=== PATIENT | male | born 1960 | race Caucasian/White ===

== ENCOUNTER 2016-10-30 23:00 | Emergency (ER) | payer SELFPAY ==
[~2016-10-30] VITALS: Ht 165.1 cm; Wt 80.5 kg
[~2016-10-30 23:00] MED LIST: AUG875 PO; ONDA4TAB35 PO
[2016-10-30 23:05] VITALS: Ht 165.1 cm; Wt 80.5 kg
[2016-10-31] MEDS ORDERED: HYDROCODONE/APAP (10/325) TAB PO ONE (02:00)
--- NOTE | 2016-10-31 02:13 | ERD ---
ER Documentation Chief Complaint Date/Time DATE: 10/31/16 TIME: 02:11 Chief Complaint painful urination x 2 days HPI 56-year-old male with history of type 2 diabetes comes the emergency department with left-sided scrotal pain and painful urination for the past 2 days. He states that he has swelling, and tenderness throughout the testicle, worsened over the last day and then he also noted that he had foul-smelling urine and painful urination. Patient states that he has been sexually active with his only, the exit intercourse this morning. He denies any penile discharge. He denies any rashes. He denies fever, chills, nausea or vomiting. Patient denies abdominal pain. ROS All systems reviewed and are negative except as per history of present illness. Medications Home Meds Active Scripts Doxycycline Hyclate* (Doxycycline Hyclate*) 100 Mg Tablet.dr, 100 MG PO BID for 10 Days, TAB Prov:JUNG GAMEZ PA-C 10/31/16 Ondansetron Hcl* (Zofran* ODT) 4 mg -ODT Tab.disper, 4 MG PO Q6 Y for NAUSEA AND /OR VOMITING, #10 TAB Prov:CRUZKENYA I. FLOW TRADER 07/21/15 Amoxicillin-Clavulanate K* (Augmentin*) 875 Mg Tab, 875 MG PO BID for 7 Days, TAB Prov:CRUZKENYA I. FLOW TRADER 07/21/15 Reported Medications [None] No Conflict Check 08/12/10 Allergies Allergies: Coded Allergies: No Known Drug Allergies (Verified Allergy, Mild, 08/12/10) PMhx/Soc History of Surgery: No Anesthesia Reaction: No Hx Neurological Disorder: No Hx Respiratory Disorders: No Hx Cardiac Disorders: No Hx Psychiatric Problems: No Hx Miscellaneous Medical Probl: Yes (dm) Hx Alcohol Use: No Hx Substance Use: No Hx Tobacco Use: No Smoking Status: Current some day smoker Physical Exam Vitals Vital Signs Date Time Temp Pulse Resp B/P Pulse Ox O2 Delivery O2 Flow Rate FiO2 10/30/16 23:05 99.2 102 20 160/90 99 Physical Exam General: Well-developed, well-nourished. The patient appears in no acute distress. HEENT: Head is normocephalic, atraumatic. No scleral icterus. Neck: Supple. Nontender. Lungs: Clear to auscultation. Normal air movement. Heart: Regular rate and rhythm. S1 and S2 are normal. No murmurs, gallops, or rubs. Abdomen: Soft, nontender, nondistended. Bowel sounds are normoactive. Exam: Scrotum: Left scrotum is swollen, tender throughout., Right side is normal. Hernia: None Testes/Epid: Non-tender w/ normal lie Cremaster: Reflex intact Lymph: No inguinal lymphadenopathy Discharge: None Extremities: No clubbing or cyanosis. Normal pulses. Moving extremities x 4. No weakness. Neurologic: Alert and oriented 3. No focal deficits. Skin: Normal turgor. No rash or lesions. Results 24 hrs Laboratory Tests Test 10/30/16 23:09 10/31/16 02:05 Bedside Glucose 242mg/dL Urine Color LT. YELLOW Urine Clarity CLEAR Urine pH 7.0 Urine Specific [place] <=1.005 Urine Ketones NEGATIVE Urine Nitrite NEGATIVE Urine Bilirubin NEGATIVE Urine Urobilinogen 0.2 E.U./dL Urine Leukocyte Esterase 1+ Urine Microscopic RBC 2-5/HPF Urine Microscopic WBC 2-5/HPF Urine Squamous Epithelial Cells RARE Urine Bacteria FEW Urine Hemoglobin 1+ Urine Glucose NEGATIVE% Urine Total Protein NEGATIVE Current Medications Medications (Trade) Dose Ordered Sig/Minerva Route PRN Reason Start Time Stop Time Status Last Admin Dose Admin Acetaminophen/ Hydrocodone Bitart ([place] (10/325)) 1 tab ONCE ONCE PO 10/31/16 02:00 10/31/16 02:01 DC 10/31/16 02:01 Ceftriaxone Sodium (Rocephin) 250 mg ONCE ONCE IM 10/31/16 04:30 10/31/16 04:31 Lidocaine (Xylocaine 1% (Mdv) 20 ml) 2 ml ONCE ONCE IM 10/31/16 04:30 10/31/16 04:31 PROCEDURE: Testicle ultrasound with power Doppler. CLINICAL INDICATION: Scrotal pain. TECHNIQUE: Multiple sonographic images of the scrotal region were obtained utilizing a linear array transducer with grayscale and color-flow and a Doppler imaging. The images were reviewed on a high-resolution PACS workstation. COMPARISON: None. FINDINGS: Bilateral testicles are normal in size, contour, echogenicity and echotexture. The right testicle measures 4.6 x 2.7 x 3.3 cm and the left testicle measures 3.9 x 2.2 x 3.1 cm. Testicle arterial and venous flow are normal. There is no evidence of testicular mass or torsion. There is no evidence of orchitis. The left epididymis is enlarged and heterogeneous with increased vascularity. The right epididymis measures 10.1 x 11.8 x 17.0 mm the left epididymis measures 22.1 x 10.7 x 10.0 mm. There is a cystic structure within the left epididymal tail measuring 12.4 x 11.3 mm. There is a small left-sided hydrocele. There is no varicocele. Scrotal soft tissues are unremarkable. IMPRESSION: Enlarged and heterogeneous left epididymis with increased vascularity compatible with epididymitis. Small left-sided hydrocele. Left epididymal cyst. .Gavin Hernandez MD, Date Time Electronically viewed and signed by .Gavin Hernandez MD, MD on 10/31/2016 04:04 .T/ Procedures/MDM ED course: Patient was medicated with [place] 10/325 mg. Patient was given Rocephin 250 mg IM. MDM: 56-year-old male comes in with left-sided scrotal pain, and foul-smelling urine, will be treated for epididymitis. Ultrasound shows a left epididymal cyst and epididymitis. He has a history of a painful urination as well as foul- smelling urine, therefore was given Rocephin 250 mg IM and will be sent home with doxycycline. He does not have evidence of a testicular torsion, Lina' s gangrene, incarcerated hernia. Departure Diagnosis: Primary Impression: Epididymitis Condition: JUNG Zuleta PA-C October 31, 2016 02:13
[2016-10-31 02:39] LABS: ADD UMIC YES; URINE BILIRUBIN (Dip) NEGATIVE (NEGATIVE); URINE BLOOD (Dip) 1+ (NEGATIVE); URINE COLOR LT. YELLOW (YELLOW); URINE GLUCOSE (Dip) NEGATIVE (NEGATIVE); URINE KETONES (Dip) NEGATIVE (NEGATIVE); URINE LEUKOCYTE ESTERASE (Dip) 1+ (NEGATIVE); URINE NITRITE (Dip) NEGATIVE (NEGATIVE); URINE TOTAL PROTEIN (Dip) NEGATIVE (NEGATIVE); URINE UROBILINOGEN (Dip) 0.2 E.U./dL (0.1-1.0)
[2016-10-31 02:51] LABS: BACTERIA,URINE FEW; SQUAMOUS EPITHELIAL CELL,UR RARE
--- NOTE | 2016-10-31 04:04 | RADRPT ---
PROCEDURE: Testicle ultrasound with power Doppler. CLINICAL INDICATION: Scrotal pain. TECHNIQUE: Multiple sonographic images of the scrotal region were obtained utilizing a linear arra y transducer with grayscale and color-flow and a Doppler imaging. The images were reviewed on a high -resolution PACS workstation. COMPARISON: None. FINDINGS: Bilateral testicles are normal in size, contour, echogenicity and echotexture. The right testicle m easures 4.6 x 2.7 x 3.3 cm and the left testicle measures 3.9 x 2.2 x 3.1 cm. Testicle arterial and venous flow are normal. There is no evidence of testicular mass or torsion. There is no evidence of orchitis. The left epididymis is enlarged and heterogeneous with increased vascularity. The right epididymis measures 10.1 x 11.8 x 17.0 mm the left epididymis measures 22.1 x 10.7 x 10.0 mm. There is a cystic structure within the left epididymal tail measuring 12.4 x 11.3 mm. There is a small left-sided hy drocele. There is no varicocele. Scrotal soft tissues are unremarkable. IMPRESSION: Enlarged and heterogeneous left epididymis with increased vascularity compatible with epididymitis. Small left-sided hydrocele. Left epididymal cyst. .Gavin Heranndez MD, Date Time Electronically viewed and signed by .Gavin Hernandez MD, MD on 10/31/2016 04:04 .T/
[2016-10-31] MEDS ORDERED: DOXY100T20 PO (04:18)
[2016-10-31] MEDS ORDERED: LIDOCAINE 1% (MDV) 20 ML INJ IM ONE (04:30)
[2016-10-31] MEDS ORDERED: CEFTRIAXONE 250 MG INJ IM ONE (04:30)
[2016-10-31 04:40] VITALS: BP 150/88; PULSE 99; RESP 20; TEMP 99.2
== END 2016-10-31 04:42 | disposition home or self-care (01) ==
LOC: FTE 23:00
DX: N45.1 Epididymitis (principal); E11.9 Type 2 diabetes mellitus without complications; F17.210 Nicotine dependence, cigarettes, uncomplicated
CPT/HCPCS: 76870; 81001; 82962; 87086; 87591; 96372; 99285; J0696; 81003

== ENCOUNTER 2017-07-04 19:00 | Emergency (ER) | END 2017-07-05 01:45 | disposition home or self-care (01) ==